=== PATIENT | female | born 1975 | race Two or more races ===

== ENCOUNTER 2016-06-16 00:11 | Emergency (ER) | payer OTHER ==
[~2016-06-16] VITALS: Ht 149.9 cm; Wt 72.6 kg
[~2016-06-16 00:11] MED LIST: ALPR1TAB2; CLIN300C3; PRED10TA; [UNRECOGNIZED DRUG - CODE]
[2016-06-16 01:12] VITALS: BP 126/72
== END 2016-06-16 03:12 | disposition home or self-care (01) ==
LOC: ER 00:17
DX: J06.9 Acute upper respiratory infection, unspecified (principal); F41.9 Anxiety disorder, unspecified; Z88.2 Allergy status to sulfonamides; Z88.1 Allergy status to other antibiotic agents; Z88.8 Allergy status to other drugs, medicaments and biological substances
CPT/HCPCS: 99281; A4606; Z7610; Z7502

== ENCOUNTER 2016-10-24 15:28 | Emergency (ER) | payer OTHER ==
[~2016-10-24] VITALS: Ht 149.9 cm; Wt 77.1 kg
[2016-10-24 15:28] VITALS: BP 141/74
== END 2016-10-24 16:07 | disposition home or self-care (01) ==
LOC: ER 15:29
DX: H10.9 Unspecified conjunctivitis (principal); Z88.2 Allergy status to sulfonamides; Z88.8 Allergy status to other drugs, medicaments and biological substances
CPT/HCPCS: 99283; A4606; Z7610

== ENCOUNTER 2020-10-01 09:13 | Emergency (ER) | payer OTHER ==
[~2020-10-01] VITALS: Ht 149.9 cm; Wt 58.1 kg
--- NOTE | 2020-10-01 09:20 | NUR ---
BIB SELF C/O VAGINAL DISCHARGED AND ITCHINESS STARTED 2 DAYS AGO. DENIES PAIN. ABDOMEN SOFT AND NON-DISTENDED. WILL CONTINUE TO MONITOR THE PATIENT.
--- NOTE | 2020-10-01 09:36 | NUR ---
URINE SPECIMEN COLLECTED AND SENT TO LAB.
--- NOTE | 2020-10-01 09:39 | NUR ---
AT BEDSIDE FOR EVAL.
[2020-10-01 10:10] LABS: BILIRUBIN,URINE Negative (NEGATIVE); COLOR,URINE YELLOW (YELLOW); LEUKOCYTE ESTERASE ,URINE Small (NEGATIVE); NITRITE, URINE Negative (NEGATIVE); PROTEIN,URINE Negative (NEGATIVE); UGLUCOSE Negative (NEGATIVE); UROBILINOGEN,URINE 0.2 EU/dL (0.2)
[2020-10-01 10:19] LABS: BACTERIA,URINE 1+ /HPF (None Seen); RBC,URINE NONE SEEN /HPF (0-2); SQUAMOUS EPITHELIAL CELL,UR None Seen /HPF (None Seen)
[2020-10-01] MEDS ORDERED: FLUC150T PO (11:01)
--- NOTE | 2020-10-01 11:17 | NUR ---
Patient discharged to home in stable condition. Written and verbal after care instructions given. Patient verbalizes understanding of instruction. The patient left ER in stable conditon.
[2020-10-01 11:18] VITALS: BP 131/80
== END 2020-10-01 11:18 | disposition home or self-care (01) ==
LOC: ER 09:23
DX: B37.9 Candidiasis, unspecified (principal); Z88.2 Allergy status to sulfonamides; Z88.1 Allergy status to other antibiotic agents; Z79.899 Other long term (current) drug therapy
CPT/HCPCS: 81001; 84703-TC; 87086-TC; 87210-TC; 87491; 87591